=== PATIENT | female | born 1930 | race Caucasian/White ===

== ENCOUNTER 2016-07-06 20:34 | Inpatient (IN) | payer OTHER ==
[~2016-07-06] VITALS: Ht 165.1 cm; Wt 60.5 kg
[~2016-07-06 20:34] MED LIST: ACET-1256 PO; ACET325T96 PO; ASPI-435 PO; CALC500T72 PO; CALCTAB27 PO; CHOL1CAP57 PO; ENOX30IN4 SQ; MULT-190 PO; MULT-808 PO; OMEG10007 PO; OXYC-57 PO; POLY335019 PO
[2016-07-06 21:02] LABS: BASO % 0.5 %; BASO ABS # 0.06 K/uL (0-0.2); COMPLETE YES; HEMATOCRIT 44.4 % (37-47); IG% 0.8 %; LYMPH % 26.2 %; LYMPH ABS # 3.39 K/uL (1.2-3.4); MEAN CELL VOLUME 93.5 fL (80-100); MEAN CORPUSCULAR HEMOGLOBIN 30.1 pg (25-34); MEAN CORPUSCULAR HGB CONC 32.2 g/dl (32-36); MEAN PLATELET VOLUME 12.3 fL (7.4-10.4); MONO % 3.9 %; NEUT % 66.6 %; PLATELET COUNT 218 K/uL (130-400); RED BLOOD COUNT 4.75 M/uL (4.2-5.4); WHITE BLOOD COUNT 12.92 K/uL (4.8-10.8)
[2016-07-06 21:08] LABS: BUN/CREATININE RATIO 33.3 (10-20); CREATININE 0.82 mg/dl (0.60-1.20); MAGNESIUM 2.4 mg/dl (1.8-2.4); POTASSIUM 4.2 mmol/L (3.5-5.1)
[2016-07-06 21:11] LABS: ISTAT CREATININE 0.7 mg/dl (0.6-1.3); ISTAT HEMOGLOBIN 14.6 g/dl (12.0-16.0); ISTAT IONIZED CALCIUM 1.16 mmol/l (1.12-1.32)
[2016-07-06 21:14] LABS: PARTIAL THROMBOPLASTIN RATIO 0.9; PROTHROMBIN TIME (PATIENT) 10.6 SECONDS (9.0-12.0)
[2016-07-06 21:20] LABS: ISTAT CREATININE 0.7 mg/dl (0.6-1.3); ISTAT HEMOGLOBIN 15.6 g/dl (12.0-16.0); ISTAT IONIZED CALCIUM 1.26 mmol/l (1.12-1.32)
[2016-07-06] MEDS ORDERED: ACET-1311 PO (21:22)
[2016-07-06] MEDS ORDERED: DOCU-94 PO (21:22)
[2016-07-06] MEDS ORDERED: CALCTAB27 PO (21:24)
[2016-07-06 22:04] LABS: CALCIUM 9.8 mg/dl (8.5-10.1)
[2016-07-06] MEDS ORDERED: NITROGLYCERIN 0.4 MG SL PER TAB CHARGE SL PRN (22:30)
[2016-07-06] MEDS ORDERED: PROMETHAZINE HCL INJ 12.5 MG in SODIUM CHLORIDE 0.9% 50ML 50 ML IV PRN (22:30)
[2016-07-06] MEDS ORDERED: ACETAMINOPHEN 325 MG TAB PO PRN (22:30)
--- NOTE | 2016-07-06 22:56 | DIAGNOSTIC IMAGING REPORT ---
CHEST ONE VIEW PORTABLE HISTORY: weakness COMPARISON: Chest 04/20/2014. FINDINGS: The lungs are hyperexpanded with apical predominant emphysematous changes. No focal lung consolidations to suggest pneumonia. Calcified granulomas within the left lower lobe. Calcified left hilar lymph nodes. The heart is normal in size. Severe degenerative changes within the shoulders. Left humeral subluxation has improved. IMPRESSION: Chronic changes as described above. No acute process within the chest. Electronically signed by: Freedom Turcios M.D. 07/06/2016 10:55 PM Dictated Date/Time: 07/06/2016 10:53 PM
[2016-07-07] VITALS (14 sets, daily range): BP systolic 98–141; BP diastolic 47–77; PULSE 34–89; TEMP 36.2–36.8; O2SAT 95–100; Ht 165.1 cm; Wt 60.5 kg
--- NOTE | 2016-07-07 00:07 | HISTORY & PHYSICAL EXAMINATION ---
DATE OF ADMISSION: 07/06/2016 PRIMARY CARE DOCTOR: Dr. Arthur. The patient is a [facility] resident. CHIEF COMPLAINT: Blackout, crushing feeling. HISTORY OF PRESENT ILLNESS: History obtained from patient, patient's family, and records. Limited history from the patient was obtained secondary to dementia and hearing impairment. Medical history is significant for dementia, hypertension, currently not on meds, history of MGUS, slow transit constipation as per records. Recent confinement last April 2014 for tibial fracture 2 to fall sp surgery. Yesterday, the patient was with family when she was noted to have a transient unresponsiveness. Patient "blacked out" for a few moments. Px's eyes rolled upwards and some incontinence noted. No extremity jerks or tongue biting witnessed. Her heart rate was found to be 40. Patient later told them that she had a crushing feeling. No cp, no sob. As per family's account, patient earlier had 4 episodes in the morning. PX denies headaches. At the Emergency Room, the patient noted to have complete heart block. MEDICAL HISTORY: As above. 2D echo from April 2014 showed LVH, certain degree of pericardial fluid anterior to the right ventricle wall without gross pericardial effusion. mild aortic sclerosis As per patient's daughter, home ACEI for HTN stopped in 2012 secondary to improved blood pressure with loss of weight. SURGERIES: She has had orthopedic procedures. HOME MEDICATIONS: Aspirin, Lovenox, multivitamins, Percocet, Ocuvite, MiraLax. ALLERGIES: TO ADHESIVES, TETRACYCLINE, PENICILLIN. FAMILY HISTORY: Heart disease. PERSONAL AND SOCIAL HISTORY: Nonsmoker, no ETOh intake, was a [employer] . currently prison resident. REVIEW OF SYSTEMS: Could not be reliably obtained. PHYSICAL EXAMINATION: VITAL SIGNS: Blood pressure was noted to be 160/72, later 140/80, pulse rate 47, RR 18, temperature 36.8, sats 92 on room air. GENERAL: Noted to be slightly anxious, no respiratory distress, demented. hard of hearing SKIN: Normal color. HEENT: Breaks palpebral conjunctivae. Dry mucosa. NECK: No JVD. Supple. CHEST: Clear to auscultation. HEART: Bradycardic. ABDOMEN: Soft. NT EXTREMITIES: No edema. no tenderness NEUROLOGIC: Dementia. hard of hearing LABS: Hemoglobin of 14.3, hematocrit 44, white cell count 12.9, platelets 218. Sodium 140, potassium 4.2, chloride 103, CO2 30, BUN 37, creatinine 0.8, glucose 124, troponin was noted to be 0. TSH 1.78. IMAGING: Chest x-ray: No infiltrate. EKG as per my interpretation : rate= 45, 3AVB, PVCs, Q-waves in septal leads. ASSESSMENT: 1. Recurrent syncope 2 to symptomatic bradycardia/3AVB. ro seizures (witnessed episode of the patient eye rolling, decreased responsiveness, and urinary incontinence) 2. Hypertension, slightly elevated currently 2 to anxiety off ACEI since 2012 due to low BP as per outpx records 3. Dementia. 4. MGUS as per records PLAN: PCU. Family amenable to external pacer placement for now, may consider PPM 2D echo, Cardio consult RE symptomatic bradycardia. EEG to rule out seizures. DVT prophylaxis. Lovenox SQ DNR as per the patient's daughter/POA, Miss Mimi Farooq. She requests updates from providers at [phone]. DARELL
[2016-07-07] MEDS: SODIUM CHLORIDE 0.9% 1000ML 1,000 ML IV SCH ×2 (00:39→16:10)
--- NOTE | 2016-07-07 02:04 | EMERGENCY ROOM VISIT NOTE ---
History Report prepared by Myriam: Yvtete Joseph Under the Supervision of: Dr. Carlos Moran M.D. 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 The patient is a resident at [facility]. Per daughter, the patient's eyes rolled back into her head and she tremored for about 15 seconds and was unresponsive. EMS was called. Per EMS, the patient was in heart block with a 6 second pause en route. They state that the patient has passed out 4 times in the past 2 days. The patient has been vomiting tonight. She denies chest pain or shortness of breath. She just states she feels generally unwell. The history is limited due to the patient being a poor historian. Source of History: patient, family, EMS History Limited By: other (poor historian) Onset: TOOL AND DIE MACHINIST Position: other (global) Quality: other (syncope) Timing: other (episode) Associated Symptoms: + LOC, + vomiting Review of Systems ROS is limited due to the patient being a poor historian. Past Medical & Surgical Medical Problems: (1) Hypertension (2) Symptomatic bradycardia Family History Patient reports no known family medical history. Social History Smoking Status: Never Smoker Alcohol Use: none Drug Use: none Housing Status: halfway Current/Historical Medications Scheduled Acetaminophen (Tylenol), 325 MG PO TID Aspirin (Aspirin 81), 81 MG PO QAM Cholecalciferol (Vitamin D3), 1,000 UNIT PO QAM Docusate Sodium (Colace), 100 MG PO QAM Multiple Vitamin (Daily Vitamin), 1 TAB PO DAILY Oyster Shell (Oysco 500), 500 MG PO BID Polyethylene Glycol 3350 (Miralax), 17 GM PO QAM Allergies Coded Allergies: Penicillins (Verified Allergy, Mild, SWELLING, 09/22/14) Adhesives (Verified Allergy, Unknown, 09/22/14) Tetracycline (Verified Allergy, Unknown, RASH, 09/22/14) Physical Exam Vital Signs Date Time Temp Pulse Resp B/P (MAP) Pulse Ox O2 Delivery O2 Flow Rate FiO2 07/06/16 21:26 67 16 174/59 98 Room Air 07/06/16 21:08 45 16 141/56 97 Room Air 07/06/16 21:08 97 Room Air 07/06/16 20:44 36.8 37 18 173/72 92 Room Air 07/06/16 20:43 36 Physical Exam Constitutional: Vital signs reviewed. Eyes: Pupils are equal round reactive to light. Conjunctiva are noninjected. ENT: Pharynx is clear without erythema or exudate. Mucous membranes are moist. Neck supple without meningeal signs. Respiratory: Clear to auscultation bilaterally. Breath sounds are equal bilaterally. Cardiovascular: Bradycardic with a HR of 42. Regular rhythm. GI: Soft, nondistended and nontender. Bowel sounds are present. Musculoskeletal: No peripheral edema. No lower extremity tenderness. Integumentary: No cyanosis. Neurological: The patient is awake and alert. Cranial nerves II-XII are intact. Motor is 5 out of 5 all extremities. Sensation is intact to light touch all extremities. Normal speech. No pronator drift. No limb ataxia. Psychiatric: Normal affect. Medical Decision & Procedures ER Provider Diagnostic Interpretation: A repeat ECG reveals sinus bradycardia at 43, 1st degree AV block, Q-waves septally, no ectopy. Radiology results as stated below per my review and the radiologist's interpretation: CHEST ONE VIEW PORTABLE HISTORY: weakness COMPARISON: Chest 04/20/2014. FINDINGS: The lungs are hyperexpanded with apical predominant emphysematous changes. No focal lung consolidations to suggest pneumonia. Calcified granulomas within the left lower lobe. Calcified left hilar lymph nodes. The heart is normal in size. Severe degenerative changes within the shoulders. Left humeral subluxation has improved. IMPRESSION: Chronic changes as described above. No acute process within the chest. Electronically signed by: Freedom Turcios M.D. 07/06/2016 10:55 PM Dictated Date/Time: 07/06/2016 10:53 PM Laboratory Results 07/06/16 20:29 Red Blood Count 4.75, Mean Corpuscular Volume 93.5, Mean Corpuscular Hemoglobin 30.1, Mean Corpuscular Hemoglobin Concent 32.2, Mean Platelet Volume 12.3, Neutrophils (%) (Auto) 66.6, Lymphocytes (%) (Auto) 26.2, Monocytes (%) (Auto) 3.9, Eosinophils (%) (Auto) 2.0, Basophils (%) (Auto) 0.5, Neutrophils # (Auto) 8.61, Lymphocytes # (Auto) 3.39, Monocytes # (Auto) 0.50, Eosinophils # (Auto) 0.26, Basophils # (Auto) 0.06 07/06/16 20:29 Test 07/06/16 20:29 07/06/16 21:00 07/06/16 21:07 White Blood Count 12.92 K/uL (4.8-10.8) Red Blood Count 4.75 M/uL (4.2-5.4) Hemoglobin 14.3 g/dL (12.0-16.0) Hematocrit 44.4 % (37-47) Mean Corpuscular Volume 93.5 fL (80-100) Mean Corpuscular Hemoglobin 30.1 pg (25-34) Mean Corpuscular Hemoglobin Concent 32.2 g/dl (32-36) Platelet Count 218 K/uL (130-400) Mean Platelet Volume 12.3 fL (7.4-10.4) Neutrophils (%) (Auto) 66.6 % Lymphocytes (%) (Auto) 26.2 % Monocytes (%) (Auto) 3.9 % Eosinophils (%) (Auto) 2.0 % Basophils (%) (Auto) 0.5 % Neutrophils # (Auto) 8.61 K/uL (1.4-6.5) Lymphocytes # (Auto) 3.39 K/uL (1.2-3.4) Monocytes # (Auto) 0.50 K/uL (0.11-0.59) Eosinophils # (Auto) 0.26 K/uL (0-0.5) Basophils # (Auto) 0.06 K/uL (0-0.2) RDW Standard Deviation 48.1 fL (36.4-46.3) RDW Coefficient of Variation 14.0 % (11.5-14.5) Immature Granulocyte % (Auto) 0.8 % Immature Granulocyte # (Auto) 0.10 K/uL (0.00-0.02) Prothrombin Time 10.6 SECONDS (9.0-12.0) Prothromb Time International Ratio 1.0 (0.9-1.1) Activated Partial Thromboplast Time 22.6 SECONDS (21.0-31.0) Partial Thromboplastin Ratio 0.9 Est Creatinine Clear Calc Drug Dose 43.5 ml/min Estimated GFR () 75.6 Estimated GFR (Non- 65.3 BUN/Creatinine Ratio 33.3 (10-20) Calcium Level 9.8 mg/dl (8.5-10.1) Magnesium Level 2.4 mg/dl (1.8-2.4) Thyroid Stimulating Hormone (TSH) 1.780 uIu/ml (0.300-4.500) Bedside Troponin I 0.000 ng/ml (0-0.045) Bedside Hemoglobin 15.6 g/dl (12.0-16.0) Bedside Hematocrit 46 % (37-47) Bedside Sodium 139 mEq/L (135-144) Bedside Potassium 4.2 mEq/L (3.3-5.0) Bedside Chloride 99 mEq/L (101-112) Bedside Total CO2 28 mEq/l (24-31) Anion Gap 18.0 mmol/L (16-25) Bedside Blood Urea Nitrogen 29 mg/dl (7-18) Bedside Creatinine 0.7 mg/dl (0.6-1.3) Bedside Glucose (other) 125 mg/dl (70-99) Bedside Ionized Calcium (Trino) 1.26 mmol/l (1.12-1.32) Laboratory results as reviewed by me. ECG Indication: syncope Rate (beats per minute): 42 Rhythm: junctional (bradycardia) Findings: Q waves (Septal), other (3rd degree AV block) ED Course 2038: The patient was evaluated in room B12B. A complete history and physical exam was performed. 2051: I reassessed the patient at this time and spoke with her daughter. She states that the patient is a DNR and when I talked to the patient she confirmed that she did not want CPR or any heroic actions. 2100: The patient is now in sinus rhythm with rate of 46, no AV dissociation. I- STAT showed a potassium of 6.1, will recheck to verify. 2116: I spoke with Dr. Davidson. We discussed the patients results and treatment plan. [facility] 2119: I reassessed the patient at this time. I discussed the results and treatment plan with the patient and her daughter. I answered all pertaining questions that they had. They expressed understanding and verbalized agreement. Medical Decision This is an 86-year-old female who presents with a syncopal episode. Differential diagnosis includes complete heart block, dysrhythmia, metabolic derangement, seizure, dehydration, acute coronary syndrome, infection. I did perform a limited focused review of portions of the patient's old chart on the electronic medical record. The patient has had no recent pertinent visits to this hospital. Medication Reconciliation: I attest that I have personally reviewed the patient' s current medication list. Blood Pressure Screening: Patient was found to have an elevated blood pressure and was referred to their primary doctor for recheck and further treatment. I was called in emergently to the room by the nurse. I did evaluate the patient as noted above. A second IV access was established. The patient was placed on a continuous classroom monitor. She has a third-degree heart block and bradycardia but she is hypertensive. I did order and personally review the patient's 12-lead EKG and chest x-ray as described above. Twelve-lead EKG demonstrates a third-degree heart block with bradycardia. No acute ischemia. She does have Q waves septally. I did order and review the patient's blood work as noted in the electronic medical record. Initially her i-STAT showed a hyperkalemia but we did repeat this and the potassium was normal. While in the emergency department the patient converted to sinus rhythm. A repeat twelve- lead EKG was obtained which showed sinus bradycardia with a first-degree heart block. I did obtain history from the patient as well as her daughter is at the bedside. Initially EMS had told me that she may have had a seizure but when I discuss what happened with the daughter it sounds like the patient just passed out briefly and had some tremors. Her syncope is likely secondary to her AV dissociation and pause. They both state that she wants to be DO NOT RESUSCITATE but is amenable to admission and cardiology evaluation for possible pacemaker as needed. The I did discuss the case with the hospitalist and business case analyst. Consults Time Called: 2114 Consulting Physician: Dr. Davidson Returned Call: [address] Davidson. We discussed the patients results and treatment plan. The patient will be evaluated by the [facility] for further management. Impression Primary Impression: Syncope Additional Impression: Third degree AV block Scribe Attestation The scribe's documentation has been prepared under my direct and personally reviewed by me in its entirety. I confirm that the note above accurately reflects all work, treatment, procedures, and medical decision making performed by me. Departure Information Dispostion Being Evaluated By Hospitalist Referrals Eula Arthur D.O. (PCP) Patient Instructions My [facility] Health Problem Qualifiers Primary Impression: Syncope Syncope type: unspecified Qualified Codes: R55 - Syncope and collapse
[2016-07-07 06:02] LABS: BASO % 0.2 %; BASO ABS # 0.03 K/uL (0-0.2); COMPLETE YES; EOS % 0.4 %; HEMATOCRIT 40.8 % (37-47); IG% 0.2 %; LYMPH % 11.3 %; LYMPH ABS # 1.44 K/uL (1.2-3.4); MEAN CELL VOLUME 92.5 fL (80-100); MEAN CORPUSCULAR HEMOGLOBIN 29.5 pg (25-34); MEAN CORPUSCULAR HGB CONC 31.9 g/dl (32-36); MEAN PLATELET VOLUME 12.3 fL (7.4-10.4); MONO % 3.7 %; NEUT % 84.2 %; PLATELET COUNT 171 K/uL (130-400); RED BLOOD COUNT 4.41 M/uL (4.2-5.4); WHITE BLOOD COUNT 12.77 K/uL (4.8-10.8)
--- NOTE | 2016-07-07 06:32 | DIAGNOSTIC IMAGING REPORT ---
CT HEAD WITHOUT CONTRAST (CT) CLINICAL HISTORY: Acute change in mental status. Possible seizure. COMPARISON STUDY: 09/22/2014 TECHNIQUE: Axial CT of the brain is performed from the vertex to the skull base. IV contrast was not administered for this examination. CT DOSE: 537.48 mGy.cm FINDINGS: No intra or extra-axial mass lesions are visualized. There is no CT evidence of acute cortical infarction. There is no evidence of midline shift. There is no acute hemorrhage. No calvarial fractures are visualized. There are patchy white matter hypodensities likely on a small vessel basis. There is no evidence of pathologic ventricular dilatation. There is no evidence of acute sinusitis IMPRESSION: No acute intracranial findings Electronically signed by: Chino Londono M.D. 07/07/2016 6:31 AM Dictated Date/Time: 07/07/2016 6:30 AM
[2016-07-07] MEDS: DOCUSATE SODIUM 100 MG CAP PO SCH (08:30)
[2016-07-07] MEDS: POLYETHYLENE (MIRALAX) 17 GM PACK PO SCH (08:31)
[2016-07-07] MEDS: MULTIVITAMIN TAB PO SCH (08:31)
[2016-07-07] MEDS: ENOXAPARIN 40 MG/0.4 ML SYR SC SCH (08:39)
[2016-07-07] MEDS: ASPIRIN 81 MG ECTAB PO SCH (08:39)
[2016-07-07] MEDS ORDERED: CLINDAMYCIN IV 600 MG in DEXTROSE 5% ADD-VANTAGE 50ML 50 ML IV STA (08:53)
[2016-07-07] MEDS ORDERED: NURSING VERBAL MED ORDER ONE (09:00)
[2016-07-07] MEDS ORDERED: BACITRACIN 50000 UNIT VIAL ONE (09:23)
[2016-07-07] MEDS ORDERED: LIDOCAINE HCL 1% 20 ML VIAL ONE (09:23)
[2016-07-07] MEDS ORDERED: BUPIVACAINE 0.5 % 5 MG/1 ML MPF 30ML VIAL ONE (09:23)
--- NOTE | 2016-07-07 09:23 | CARDIOLOGY CONSULTATION ---
DATE OF CONSULTATION: 07/07/2016 CONSULTATION FOR: Ruddy cam. REASON FOR CONSULTATION: Syncope. HISTORY OF PRESENT ILLNESS: This is an 86-year-old female who is a resident of [facility]. She had a syncopal episode and was admitted to the hospital. On the telemetry, she has developed complete heart block with bradycardia. She currently is hemodynamically stable. However, she will need a permanent pacemaker. The patient is listed under the H&P as being demented; however, there may be some mild dementia, but I think most of it is that she is hard of hearing. The family is with her at the bedside. They would like her to have a permanent pacemaker for quality of life. Her daughter is here who is the power of regulatory attorney and is willing to sign the consent. She has no prior history of heart disease. She denies myocardial infarction, angina, congestive heart failure or other cardiac arrhythmias. In April of this year, she was admitted after a fall which could have been a syncopal event, where she fractured her tibia. During that admission, she had an echocardiogram that showed normal LV systolic function and no significant valvular pathology. There is an incidental finding of a small anterior pericardial effusion which is clinically insignificant. ALLERGIES: TO ADHESIVE TAPE, TETRACYCLINE, AND PENICILLIN. PAST MEDICAL HISTORY: The patient has a history of hypertension. She also has a history of monoclonal antibody of unspecified significance. She has no prior history of diabetes, strokes or significant kidney disease. SOCIAL HISTORY: She is a resident of [facility]. She is a nonsmoker. FAMILY MEDICAL HISTORY: Noncontributory. REVIEW OF SYSTEMS: As per the history of chief complaint. PHYSICAL EXAMINATION: GENERAL: She is alert, but hard of hearing. VITAL SIGNS: Blood pressure is 120/60. Pulse is regular at 40 beats per minute. She is in complete heart block on the telemetry. HEENT: She is normocephalic. Pupils are equal and reactive to light. Mucous membranes are moist. NECK: The neck veins are flat. Carotids have good upstrokes bilaterally without bruits. Thyroid is nonpalpable. RESPIRATORY: Breath sounds are equal bilaterally and clear to auscultation. CARDIOVASCULAR: Heart has an irregular rhythm. There are no cardiac rubs or murmurs. GASTROINTESTINAL: Abdomen is soft, nontender without organomegaly. EXTREMITIES: Free of edema, digit clubbing, or cyanosis. NEUROLOGIC: Grossly intact. SKIN: Warm to touch. LYMPH NODES: Negative to palpation. IMPRESSION: 1. High grade complete heart block. 2. Syncope related to #1. 3. Hard of hearing. RECOMMENDATIONS: As outlined above, the family is at her bedside including her power of regulatory attorney. They would like her to have a permanent pacemaker, which I think is reasonable for relief of her syncopal episodes and quality of life. I will consult the EP physicians to place a permanent pacemaker. Currently, the patient is hemodynamically stable and I think it could be done urgently, but at a reasonable time.
[2016-07-07] MEDS ORDERED: FENTANYL CITRATE INJ 50 MCG/1 ML 2 ML VIAL ONE (09:59)
[2016-07-07] MEDS ORDERED: MIDAZOLAM HCL 5 MG/ML 1 ML VIAL ONE (09:59)
[2016-07-07] MEDS ORDERED: ACETAMINOPHEN 325 MG TAB PO PRN (11:00)
[2016-07-07] MEDS: OXYCODONE/ACETAMINOPHEN 5-325 TAB PO PRN (11:54)
--- NOTE | 2016-07-07 14:56 | ECHOCARDIOGRAM REPORT ---
*NOTICE TO RECEIVING [employer] This information is strictly Confidential and protected under [place] law. [place] law prohibits you from making any further disclosure of this information unless further disclosure is expressly permitted by the written consent of the person to whom it pertains or is authorized by law. A general authorization for the release of medical or other information is not sufficient for this purpose. Hospital accepts no responsibility if the information is made available to any other person, INCLUDING THE PATIENT. Interpretation Summary * Name: CARLITA LE Study Date: 07/07/2016 06:30 AM BP: 125/56 mmHg * Patient Location: C.2T\S\E216\S\1 HR: 36 * : 1930 (M/d/yyyy) Gender: Female Height: 62 in * Age: 86 yrs Ethnicity: CA Weight: 137 lb * Ordering Physician: Steven Davidson * Referring Physician: Self, Referred * Performed By: Radha Ortiz RCS * * Reason For Study: BRADYCARDIA / SYNCOPE * BSA: 1.6 m2 * -- Conclusions -- * Aortic valve sclerosis moderate, without significant aortic valvular stenosis. * The left ventricle is normal in size. * Left ventricular systolic function is normal. * Ejection Fraction = 55-60%. * The right ventricular systolic function is normal. * The left atrium is moderately dilated. * Right atrial size is normal. * There is severe mitral annular calcification. * There is mild mitral stenosis. Procedure Details * A complete two-dimensional transthoracic echocardiogram was performed (2D, M-mode, Doppler and color flow Doppler). Left Ventricle * The left ventricle is normal in size. * There is normal left ventricular wall thickness. * Ejection Fraction = 55-60%. * Left ventricular systolic function is normal. * The left ventricular wall motion is normal. Right Ventricle * The right ventricle is normal size. * The right ventricular systolic function is normal. Atria * The left atrium is moderately dilated. * Right atrial size is normal. * No ASD detected; PFO is not assessed. Mitral Valve * There is severe mitral annular calcification. * The mitral valve is not well visualized. * There is mild mitral stenosis. * Significant mitral regurgitation is absent. Tricuspid Valve * The tricuspid valve is not well visualized. * Significant tricuspid regurgitation is absent. Aortic Valve * Aortic valve sclerosis moderate, without significant aortic valvular stenosis. * There is no significant aortic regurgitation. Pulmonic Valve * The pulmonic valve is not well visualized. Great Vessels * The aortic root and proximal ascending aorta are normal sized. Pericardium/Pleural * There is no pericardial effusion. * There is no pleural effusion. MMode 2D Measurements and Calculations IVSd 1.1 cm IVSs 1.4 cm LVIDd 4.4 cm LVIDs 3.3 cm LVPWd 0.97 cm LVPWs 0.95 cm IVS/LVPW 1.1 FS 25.8 % EDV(Teich) 87.1 ml ESV(Teich) 42.7 ml EF(Teich) 51.0 % EDV(cubed) 84.5 ml ESV(cubed) 34.5 ml EF(cubed) 59.2 % % IVS thick 29.9 % % LVPW thick -2.61 % LV mass(C)d 153.5 grams LV mass(C)dI 94.3 grams/m\S\2 LV mass(C)s 119.4 grams LV mass(C)sI 73.3 grams/m\S\2 SV(Teich) 44.4 ml SI(Teich) 27.3 ml/m\S\2 SV(cubed) 50.0 ml SI(cubed) 30.7 ml/m\S\2 Ao root diam 2.7 cm Ao root area 5.8 cm\S\2 LA dimension 2.6 cm LA/Ao 0.98 LVOT diam 1.7 cm LVOT area 2.2 cm\S\2 LVAd ap4 21.5 cm\S\2 LVLd ap4 6.1 cm EDV(MOD-sp4) 61.1 ml EDV(sp4-el) 64.7 ml LVAs ap4 12.3 cm\S\2 LVLs ap4 4.9 cm ESV(MOD-sp4) 25.5 ml ESV(sp4-el) 26.4 ml EF(MOD-sp4) 58.3 % EF(sp4-el) 59.2 % LVAd ap2 20.2 cm\S\2 LVLd ap2 6.2 cm EDV(MOD-sp2) 52.3 ml EDV(sp2-el) 55.5 ml LVAs ap2 13.1 cm\S\2 LVLs ap2 5.4 cm ESV(MOD-sp2) 24.7 ml ESV(sp2-el) 27.1 ml EF(MOD-sp2) 52.7 % EF(sp2-el) 51.1 % LVLd %diff 2.7 % EDV(MOD-bp) 57.8 ml LVLs %diff 9.3 % ESV(MOD-bp) 26.8 ml EF(MOD-bp) 53.6 % SV(MOD-sp4) 35.6 ml SI(MOD-sp4) 21.9 ml/m\S\2 SV(MOD-sp2) 27.6 ml SI(MOD-sp2) 16.9 ml/m\S\2 SV(MOD-bp) 31.0 ml SI(MOD-bp) 19.1 ml/m\S\2 SV(sp4-el) 38.3 ml SI(sp4-el) 23.5 ml/m\S\2 SV(sp2-el) 28.4 ml SI(sp2-el) 17.4 ml/m\S\2 Doppler Measurements and Calculations MV E max ciara 119.1 cm/sec MV A max ciara 210.3 cm/sec MV E/A 0.57 MV P1/2t max ciara 128.3 cm/sec MV P1/2t 257.6 msec MVA(P1/2t) 0.85 cm\S\2 MV dec slope 145.9 cm/sec\S\2 MV dec time 1.0 sec Ao V2 max 134.8 cm/sec Ao max PG 7.3 mmHg Ao max PG (full) 2.8 mmHg JULIO C(V,A) 1.7 cm\S\2 JULIO C(V,D) 1.7 cm\S\2 LV V1 max PG 4.5 mmHg LV V1 max 105.8 cm/sec TR max ciara 235.8 cm/sec
--- NOTE | 2016-07-07 15:06 | ELECTROENCEPHALOGRAPH REPORT ---
CLINICAL DIAGNOSIS: Syncope versus seizure. EEG DIAGNOSIS: Essentially normal during wakefulness. DESCRIPTION OF TRACING: This EEG was done as a bedside recording with a simultaneous video analysis of patient movement and behavior. No activation procedures were utilized. Drowsiness and light sleep were not recorded. Overall the recording was of excellent quality with few or no muscle or movement artifacts. During wakefulness, there is evidence for normal appearing background rhythm in the alpha range of up to 10 Hz of maximum frequency and 30 microvolts of maximum amplitude. This is maximum posterior head regions and bilaterally symmetrical. Polymorphic mid frequency theta activity of modest voltage is seen over all head regions without clear focal or regional predominance. Anterior head region maximum bilaterally symmetrical low voltage fast activity in the beta range is present. At no time during the waking tracing is there evidence for potentially epileptogenic activity in the form of polyspike or spike wave bursts, focal sharp waves or focal spikes. INTERPRETATION: This EEG is essentially normal during wakefulness without evidence for focal or generalized encephalopathy and without evidence for potentially epileptogenic activity.
[2016-07-07 15:14] LABS: URINE APPEARANCE CLEAR (CLEAR); URINE BILIRUBIN NEG (NEG); URINE COLOR DK YELLOW; URINE NITRITE NEG (NEG); URINE SPECIFIC GRAVITY 1.023 (1.000-1.030); UROBILINOGEN NEG (NEG); ZZUR CULT IF INDIC CLEAN CATCH YES
[2016-07-07 15:28] LABS: MANUAL MICROSCOPIC REQUIRED? NO; REVIEW REQ? YES
[2016-07-07] MEDS: CLINDAMYCIN IV 600 MG in DEXTROSE 5% ADD-VANTAGE 50ML 50 ML IV SCH (16:48)
[2016-07-07] MEDS: HYDROmorphone INJ 1 MG/ML SYR IV PRN (16:49)
--- NOTE | 2016-07-07 16:49 | OPERATIVE REPORT ---
DATE OF OPERATION: 07/07/2016 PROCEDURE PERFORMED: Implantation of dual chamber permanent pacemaker. STAFF MACHINE BINDER STRIPPER: Dr. Alexandre Villarreal. INDICATIONS: Mrs. Pat Matthews is an 86-year-old woman who presented to [facility] after periods of unresponsiveness. The patient was noted on EKG to have complete heart block and periods of ventricular asystole associated with this arrhythmia. This correlated with her symptoms. Based on the nature of her symptoms and conduction disease, she was advised to consider implantation of a pacemaker for symptomatic nonreversible AV node dysfunction. A dual chamber device was selected as the patient is currently in sinus rhythm and wished to maintain AV synchrony. PROCEDURE DETAIL: The patient was informed of risks, benefits, alternatives to an intended procedure. Her power of estate attorney was also informed and sign the witness consent form. DESCRIPTION OF PROCEDURE: The patient was brought to the electrophysiology suite in a fasting state. Preoperative antibiotic had been administered. The patient was monitored electrocardiographically throughout today's procedure. The left lateral chest area was prepped and draped in usual sterile fashion. This area was anesthetized using subcutaneous administration of Xylocaine and Marcaine solution. An incision was made, dissection carried down the prepectoralis fascia using sharp dissection. Electrocautery was also employed for dissection as well as for hemostasis. A limited left axillary venogram was then performed in order to identify a suitable target vessel. Once identified, the left axillary vein was accessed twice using modified Seldinger technique. Sheaths were placed over guidewire at this site and used for the passage of the pacing leads to their respective chambers under fluoroscopic guidance, this included right atrial and right ventricular leads. Adequate sensing and threshold parameters were obtained prior active fixation of these leads to the endocardial surface. The proximal portion of the leads was then sutured to the prepectoral fascia using nonabsorbable suture. Device pocket was irrigated with an antibiotic solution. Leads were then attached to the device, device and leads were then placed in the pocket and the pocket was closed in 3 layers of absorbable suture. Steri-Strips and sterile dressing were applied. The device was tested noninvasively prior to concluding the procedure. The patient tolerated the procedure well. There were no immediate complications. EQUIPMENT USED: New pulse generator, manager of medical [employer], model #A2DR01, serial #[id number]. Right atrial lead, manager of medical [employer], model #5076, serial #[id number]. Right ventricular lead, manager of medical [employer], model #5076, serial #[id number]. MEASURED DATA: 1. Right atrial lead, P waves measured 1.8 millivolts, pacing threshold was 2.75 volts at 0.4 milliseconds with a pacing impedance of 418 ohms. 2. Right ventricular lead, R-waves measured 6.8 millivolts, pacing threshold was 0.75 volts at 0.4 milliseconds and the pacing impedance of 532 ohms. IMPRESSION: 1. Successful implantation of dual chamber permanent pacemaker. 2. Slightly elevated atrial-pacing threshold at the conclusion of the case. PLAN: The patient will be monitored throughout overnight and additional dose of antibiotics will be administered. Chest x-ray and interrogation of device will be performed this morning. Should all parameters be adequate and the patient be feeling well, she will be considered for discharge at that time. I attest to the content of the Intraoperative Record and any orders documented therein. Any exception s are noted below.
[2016-07-07] MEDS ORDERED: DiphenhydrAMINE HCL 12.5MG/5 ML UDC PO ONE (18:15)
[2016-07-07] MEDS ORDERED: LORATADINE 10 MG TAB PO STA (23:30)
[2016-07-08] MEDS: CLINDAMYCIN IV 600 MG in DEXTROSE 5% ADD-VANTAGE 50ML 50 ML IV SCH (02:13)
[2016-07-08 03:35] VITALS: BP 122/73; PULSE 84; TEMP 37; O2SAT 98
--- NOTE | 2016-07-08 07:36 | DIAGNOSTIC IMAGING REPORT ---
CHEST 2 VIEWS ROUTINE HISTORY: EXACT TIME ORDERED Evaluate for pneumothorax and lead placement COMPARISON: Chest 07/06/2016. FINDINGS: Left-sided dual-chamber pacemaker. The leads appear intact. Calcified left hilar lymph nodes and a calcified left lower lobe granuloma remain unchanged. The heart is normal in size. The right lung is clear. Degenerative changes within the shoulders are again noted. IMPRESSION: Left-sided dual-chamber pacemaker. No pneumothorax. Electronically signed by: Freedom Turcios M.D. 07/08/2016 7:35 AM Dictated Date/Time: 07/08/2016 7:33 AM
[2016-07-08] MEDS: OXYCODONE/ACETAMINOPHEN 5-325 TAB PO PRN ×2 (07:55→16:45)
[2016-07-08] MEDS: ENOXAPARIN 40 MG/0.4 ML SYR SC SCH (07:56)
[2016-07-08] MEDS: MULTIVITAMIN TAB PO SCH (07:56)
[2016-07-08] MEDS: SODIUM CHLORIDE 0.9% 1000ML 1,000 ML IV SCH (07:57)
[2016-07-08] MEDS: ASPIRIN 81 MG ECTAB PO SCH (07:57)
[2016-07-08] MEDS: POLYETHYLENE (MIRALAX) 17 GM PACK PO SCH (07:57)
[2016-07-08] MEDS: DOCUSATE SODIUM 100 MG CAP PO SCH (07:57)
[2016-07-08 08:00] VITALS: BP 124/76; PULSE 82; TEMP 36.8; O2SAT 98
--- NOTE | 2016-07-08 08:17 | Cardiology Follow-Up ---
Subjective Date of Service: Jul 08, 2016. Pt evaluation today including: conversation w/ patient, physical exam History of Present Illness S/P dual chamber Medtronic pacemaker implant yesterday for symptomatic complete heart block Social History Smoking Status: Never Smoker History of Alcohol Use: No Objective Vital Signs Past 12 Hours Date Time Temp Pulse Resp B/P (MAP) Pulse Ox O2 Delivery O2 Flow Rate FiO2 07/08/16 04:00 Room Air 07/08/16 03:35 37.0 84 18 122/73 (89) 98 Room Air 07/08/16 00:00 Room Air 07/07/16 23:52 36.4 82 20 120/77 (91) 98 Room Air Last Recorded Weight-Kilograms: 56.700 Physical Exam Implant site is erythematous as is the rest of her skin (generalized rash). No drainage. No hematoma. Interrogation reveals some farfield oversensing on the A-lead which was remedied with reduced atrial sensitivity. CXR demonstrated good lead position without PTX Data Laboratory Results: Last 24 Hours Test 07/08/16 07:08 Imaging: EKG: Telemetry reviewed: Assessment and Plan Successful implant of dual chamber pacemaker without complication. Generalized rash possibly secondary to clindamycin Recommend: Keep wound dry and ster-strip intact until f;/u in 1 week (can be arranged with [facility] cardiology device clinic) No lifting left arm above shoulder or behind neck for 6 weeks Stop clindamycin
[2016-07-08 08:33] LABS: BUN/CREATININE RATIO 25.4 (10-20); CREATININE 0.79 mg/dl (0.60-1.20); MAGNESIUM 2.1 mg/dl (1.8-2.4); PHOSPHORUS 2.5 mg/dl (2.5-4.9); POTASSIUM 4.2 mmol/L (3.5-5.1)
[2016-07-08] MEDS ORDERED: DiphenhydrAMINE HCL 50 MG/ML VIAL IV PRN (10:00)
[2016-07-08] MEDS ORDERED: HYDROCORTISONE IV 100 MG in SYRINGE 0 ML IV ONE (11:30)
--- NOTE | 2016-07-08 11:48 | Cardiology Follow-Up ---
Subjective General Date of Service: Jul 08, 2016. Chief Complaint: follow up syncope Pt evaluation today including: conversation w/ patient, physical exam History of Present Illness The patient is a 86 year old female seen in cardiology follow up with initially consultation having been performed yesterday by Dr Browning. Patient without complaint. Has asymptomatic generalized rash. Telemetry reveals SR with V pacing. EP note from today noted and appreciated. Allergies Coded Allergies: Penicillins (Verified Allergy, Mild, SWELLING, 09/22/14) Adhesives (Verified Allergy, Unknown, 09/22/14) Tetracycline (Verified Allergy, Unknown, RASH, 09/22/14) Social History Smoking Status: Never Smoker Hx Tobacco Use In Past Year?: No Hx Alcohol Use - Type And Amou: No Hx Substance Use - Type And Am: No Problem List Medical Problems: (1) Syncope Status: Acute (2) Third degree AV block Status: Acute Physical Exam Vital Signs Last Vital Signs Documentation Date Time Temp Pulse Resp B/P (MAP) Pulse Ox O2 Delivery O2 Flow Rate FiO2 07/08/16 08:00 36.8 82 20 124/76 (92) 98 Room Air Physical Exam Constitutional: Level of Distress: chronically ill Lungs: Auscultation: no wheezing, no rales/crackles, no rhonchi Cardiovascular: Heart Auscultation: RRR Extremities: no edema Assessment and Plan Assessment and Plan Impression: 86 year old female 1. Syncope due to intermittent complete AV block for which patient had dual chamber PPM on 07/07. 2. Post procedure CXR OK with no PTX and stable lead position. 3. Pacer interrogation reviewed by EP and settings adjusted as noted in Dr Villarreal's note. Plan: I have requested follow up with [facility] pacemaker clinic and Dr Browning within 7-10 days. Stable for discharge from my standpoint , clindamycin stopped due to it being a potential cause of rash. Laboratory Results Last 24 Hours Test 07/08/16 07:08 Sodium Level 144 mmol/L Potassium Level 4.2 mmol/L Chloride Level 109 mmol/L Carbon Dioxide Level 25 mmol/L Anion Gap 10.0 mmol/L Blood Urea Nitrogen 20 mg/dl Creatinine 0.79 mg/dl Est Creatinine Clear Calc Drug Dose 46.6 ml/min Estimated GFR () 79.1 Estimated GFR (Non- 68.3 BUN/Creatinine Ratio 25.4 Random Glucose 86 mg/dl Calcium Level 9.0 mg/dl Phosphorus Level 2.5 mg/dl Magnesium Level 2.1 mg/dl
[2016-07-08 12:00] VITALS: BP 134/72; PULSE 88; TEMP 36.8; O2SAT 98
[2016-07-08] MEDS: HYDROmorphone INJ 1 MG/ML SYR IV PRN (12:25)
[2016-07-08 16:11] VITALS: BP 100/65; PULSE 93; TEMP 37.2; O2SAT 96
--- NOTE | 2016-07-08 16:23 | Progress Note ---
Internal Med Progress Note Date of Service: Jul 08, 2016. Provider Documentation: SUBJECTIVE: The patient was seen and examined Admitted with [facility] with syncopal episodes Has dementia Developed generalized maculopapular rash Has been on Clindamycin perioperatively for placement of PPM OBJECTIVE: Vital Signs-as noted below Exam: General-No distress at rest Has generalized maculopapular rash Eyes-normal ENT-normal Neck-supple Lungs-clear to auscultate bilaterally Heart-Regular Abdomen-Benign Extremities-Trace edema bilaterally Neuro-AA Has Dementia Lab data as noted below. ASSESSMENT & PLAN: Recurrent syncope 2 to CHB Symptomatic Bradyarrhythmia R/O seizures (witnessed episode of the patient eye rolling, decreased responsiveness, and urinary incontinence) EEG negative Appreciate Cardiology input S/P PPM placement-monitor shows pacing rhythm Generalized Maculopapular rash Likely due to Clindamycin Stopped Hydrocortisone and Benadryl given Will keep her tonight Hypertension, slightly elevated currently 2 to anxiety off ACEI since 2012 due to low BP as per outpx records Dementia. No Delirium 4MGUS as per records DVT prophylaxis. Lovenox SQ DNR as per the patient's daughter/POA, Miss Mimi Farooq. She requests updates from providers at [phone]. Likely discharge tomorrow Vital Signs: Date Time Temp Pulse Resp B/P (MAP) Pulse Ox O2 Delivery O2 Flow Rate FiO2 07/08/16 16:11 37.2 93 18 100/65 (77) 96 Room Air 07/08/16 12:00 Room Air 07/08/16 12:00 36.8 88 20 134/72 (92) 98 Room Air 07/08/16 08:00 98 Room Air 07/08/16 08:00 36.8 82 20 124/76 (92) 98 Room Air 07/08/16 04:00 Room Air 07/08/16 03:35 37.0 84 18 122/73 (89) 98 Room Air 07/08/16 00:00 Room Air 07/07/16 23:52 36.4 82 20 120/77 (91) 98 Room Air 07/07/16 20:08 36.7 77 20 98/63 (75) 100 Room Air 07/07/16 20:00 Room Air Lab Results: Results Past 24 Hours Test 07/08/16 07:08 Range/Units Sodium Level 144 136-145 mmol/L Potassium Level 4.2 3.5-5.1 mmol/L Chloride Level 109 98-107 mmol/L Carbon Dioxide Level 25 21-32 mmol/L Anion Gap 10.0 3-11 mmol/L Blood Urea Nitrogen 20 7-18 mg/dl Creatinine 0.79 0.60-1.20 mg/dl Est Creatinine Clear Calc Drug Dose 46.6 ml/min Estimated GFR () 79.1 Estimated GFR (Non- 68.3 BUN/Creatinine Ratio 25.4 10-20 Random Glucose 86 70-99 mg/dl Calcium Level 9.0 8.5-10.1 mg/dl Phosphorus Level 2.5 2.5-4.9 mg/dl Magnesium Level 2.1 1.8-2.4 mg/dl
[2016-07-08 20:16] VITALS: BP 105/69; PULSE 81; TEMP 36.9; O2SAT 97
[2016-07-09] VITALS (8 sets, daily range): BP systolic 97–123; BP diastolic 62–69; PULSE 72–101; TEMP 36.5–37.1; O2SAT 94–98
[2016-07-09] MEDS: SODIUM CHLORIDE 0.9% 1000ML 1,000 ML IV SCH ×2 (06:43→21:29)
[2016-07-09] MEDS: ASPIRIN 81 MG ECTAB PO SCH (07:49)
[2016-07-09] MEDS: DOCUSATE SODIUM 100 MG CAP PO SCH (07:49)
[2016-07-09] MEDS: MULTIVITAMIN TAB PO SCH (07:49)
[2016-07-09] MEDS: POLYETHYLENE (MIRALAX) 17 GM PACK PO SCH (07:50)
[2016-07-09] MEDS: ENOXAPARIN 40 MG/0.4 ML SYR SC SCH (07:50)
[2016-07-09 08:22] LABS: BUN/CREATININE RATIO 27.5 (10-20); CREATININE 0.69 mg/dl (0.60-1.20); MAGNESIUM 2.2 mg/dl (1.8-2.4)
[2016-07-09 08:41] LABS: CALCIUM 9.1 mg/dl (8.5-10.1)
[2016-07-09] MEDS: OXYCODONE/ACETAMINOPHEN 5-325 TAB PO PRN (11:56)
[2016-07-09] MEDS: POT PHOSPHATE MONOBASIC W/ SOD TAB PO SCH ×3 (11:56→21:30)
[2016-07-09] MEDS: TRIAMCINOLONE ACET 0.1% CR 15 GM TUBE EXT SCH ×2 (12:15→21:30)
--- NOTE | 2016-07-09 13:29 | Cardiology Progress Note ---
Cardiology Progress Note Date of Service Jul 09, 2016. Cardiology Progress Note Patient resting comfortably. Rash appears improved compared to yesterday. Telemetry reveals SR with ventricular pacing.
--- NOTE | 2016-07-09 17:11 | Progress Note ---
Internal Med Progress Note Date of Service: Jul 09, 2016. Provider Documentation: SUBJECTIVE: has rash all over the body denies chest pain or sob no nausea seems weak afebrile OBJECTIVE: Vital Signs-as noted below Exam: General-alert and awake. Not in distress. Weak and frail ENT-HArd of hearing Neck-no neck masses, supple Lungs-cta b/l no wheezing or crackles Heart-s1 and s2 heard regular rate and rhythm, no murmurs, pacemaker site no drainage Abdomen-soft bowel sounds present non tender no distension Extremities-no edema, no erythema Skin: erythematous rash involving face and extremities Neuro-alert and awake moves extremities Lab data as noted below. ASSESSMENT & PLAN: Recurrent syncope 2 to CHB Symptomatic Bradyarrhythmia EEG negative S/P PPM placement-monitor shows pacing rhythm stable Generalized Maculopapular rash Most Likely due to Clindamycin which was stopped Hydrocortisone and Benadryl given improved but still has significant rash prednisone given and triamcinolone cream will monitor Hypertension, off ACEI since 2012 due to low BP as per outpx records stable will monitor Dementia. No Delirium 4MGUS as per records DVT prophylaxis. Lovenox SQ DNR as per the patient's daughter/POA, Miss Mimi Farooq. She requests updates from providers at [phone]. Most Likely discharge tomorrow Vital Signs: Date Time Temp Pulse Resp B/P (MAP) Pulse Ox O2 Delivery O2 Flow Rate FiO2 07/09/16 15:00 37.1 77 16 113/67 (82) 94 Room Air 07/09/16 11:25 36.5 101 20 123/68 (86) 95 Room Air 07/09/16 08:00 97 Room Air 07/09/16 07:45 36.8 76 18 108/64 (79) 97 Room Air 07/09/16 04:00 Room Air 07/09/16 03:47 36.8 76 18 107/69 (82) 98 Room Air 07/09/16 00:08 36.8 76 18 97/62 (74) 98 Room Air 07/09/16 00:00 Room Air 07/08/16 20:16 36.9 81 18 105/69 (81) 97 Room Air 07/08/16 20:00 Room Air Lab Results: Results Past 24 Hours Test 07/09/16 07:30 Range/Units Sodium Level 144 136-145 mmol/L Potassium Level 4.0 3.5-5.1 mmol/L Chloride Level 110 98-107 mmol/L Carbon Dioxide Level 26 21-32 mmol/L Anion Gap 8.0 3-11 mmol/L Blood Urea Nitrogen 19 7-18 mg/dl Creatinine 0.69 0.60-1.20 mg/dl Est Creatinine Clear Calc Drug Dose 26.6 ml/min Estimated GFR () 92.0 Estimated GFR (Non- 79.4 BUN/Creatinine Ratio 27.5 10-20 Random Glucose 80 70-99 mg/dl Calcium Level 9.1 8.5-10.1 mg/dl Phosphorus Level 2.0 2.5-4.9 mg/dl Magnesium Level 2.2 1.8-2.4 mg/dl
[2016-07-10] VITALS (7 sets, daily range): BP systolic 100–131; BP diastolic 62–80; PULSE 67–73; TEMP 36.4–37; O2SAT 96–100
[2016-07-10 06:12] LABS: BASO % 0.1 %; BASO ABS # 0.01 K/uL (0-0.2); COMPLETE YES; EOS % 4.9 %; HEMATOCRIT 33.7 % (37-47); IG% 0.4 %; LYMPH % 7.7 %; LYMPH ABS # 0.92 K/uL (1.2-3.4); MEAN CELL VOLUME 93.6 fL (80-100); MEAN CORPUSCULAR HEMOGLOBIN 30.3 pg (25-34); MEAN CORPUSCULAR HGB CONC 32.3 g/dl (32-36); MEAN PLATELET VOLUME 12.1 fL (7.4-10.4); MONO % 8.4 %; NEUT % 78.5 %; PLATELET COUNT 112 K/uL (130-400); PLT ESTIMATE DECREASED; WHITE BLOOD COUNT 11.95 K/uL (4.8-10.8)
[2016-07-10] MEDS: ASPIRIN 81 MG ECTAB PO SCH (07:46)
[2016-07-10] MEDS: MULTIVITAMIN TAB PO SCH (07:46)
[2016-07-10] MEDS: POT PHOSPHATE MONOBASIC W/ SOD TAB PO SCH ×4 (07:46→21:15)
[2016-07-10] MEDS: DOCUSATE SODIUM 100 MG CAP PO SCH (07:46)
[2016-07-10] MEDS: POLYETHYLENE (MIRALAX) 17 GM PACK PO SCH (07:46)
[2016-07-10] MEDS: ENOXAPARIN 40 MG/0.4 ML SYR SC SCH (07:47)
[2016-07-10] MEDS: TRIAMCINOLONE ACET 0.1% CR 15 GM TUBE EXT SCH ×2 (07:48→21:15)
[2016-07-10 09:08] LABS: BASO % 0.1 %; BASO ABS # 0.01 K/uL (0-0.2); EOS % 5.8 %; IG% 0.4 %; LYMPH % 7.4 %; LYMPH ABS # 0.92 K/uL (1.2-3.4); MEAN CORPUSCULAR HEMOGLOBIN 30.1 pg (25-34); MEAN PLATELET VOLUME 11.8 fL (7.4-10.4); MONO % 8.1 %; NEUT % 78.2 %; PLATELET COUNT 118 K/uL (130-400); RED BLOOD COUNT 3.55 M/uL (4.2-5.4); WHITE BLOOD COUNT 12.49 K/uL (4.8-10.8)
[2016-07-10 09:12] LABS: COMPLETE YES; MEAN CORPUSCULAR HGB CONC 32.4 g/dl (32-36)
[2016-07-10] MEDS ORDERED: METHYLPREDNISOLONE IV 40 MG in SYRINGE 0 ML IV ONE (09:15)
[2016-07-10 09:28] LABS: BUN/CREATININE RATIO 29.3 (10-20); CALCIUM 8.2 mg/dl (8.5-10.1); CREATININE 0.65 mg/dl (0.60-1.20); POTASSIUM 3.7 mmol/L (3.5-5.1)
[2016-07-10] MEDS: SODIUM CHLORIDE 0.9% 1000ML 1,000 ML IV SCH (12:29)
--- NOTE | 2016-07-10 18:12 | Progress Note ---
Internal Med Progress Note Date of Service: Jul 10, 2016. Provider Documentation: SUBJECTIVE: rash on the face improved but still has significant rash on the back feeling tired appetite ok afebrile no nausea OBJECTIVE: Vital Signs-as noted below Exam: General-alert and awake. Not in distress. Weak and frail ENT-HArd of hearing Neck-no neck masses, supple Lungs-cta b/l no wheezing or crackles Heart-s1 and s2 heard regular rate and rhythm, no murmurs, pacemaker site no drainage Abdomen-soft bowel sounds present non tender no distension Extremities-no edema, no erythema Skin: erythematous rash on the back Neuro-alert and awake moves extremities Lab data as noted below. ASSESSMENT & PLAN: Recurrent syncope 2 to CHB Symptomatic Bradyarrhythmia EEG negative S/P PPM placement-monitor shows pacing rhythm stable f/u with cardiology Generalized Maculopapular rash Most Likely due to Clindamycin which was stopped Hydrocortisone and Benadryl given improved but still has significant rash prednisone given and triamcinolone cream still has rash on the back. one more dose of steroids given today will monitor Hypertension, off ACEI since 2012 due to low BP as per outpx records stable will monitor Mild thrombocytopenia will stop Lovenox will f/u HIT study Dementia. No Delirium 4MGUS as per records DVT prophylaxis. scds DNR as per the patient's daughter/POA, Miss Mimi Farooq. She requests updates from providers at [phone]. Most Likely discharge tomorrow Vital Signs: Date Time Temp Pulse Resp B/P (MAP) Pulse Ox O2 Delivery O2 Flow Rate FiO2 07/10/16 16:00 Room Air 07/10/16 15:27 36.5 67 20 116/75 (89) 97 Room Air 07/10/16 12:00 Room Air 07/10/16 11:39 36.7 67 18 131/80 (97) 96 07/10/16 08:00 Room Air 07/10/16 06:59 36.8 70 19 100/62 (75) 98 Room Air 07/10/16 04:51 37.0 73 18 127/64 (85) 98 Room Air 07/10/16 04:00 Room Air 07/10/16 00:00 Room Air 07/10/16 00:00 36.7 72 18 106/67 (80) 100 Room Air 07/09/16 20:00 Room Air 07/09/16 19:44 36.6 72 20 100/63 (75) 98 Room Air Lab Results: Results Past 24 Hours Test 07/10/16 05:04 07/10/16 08:55 Range/Units White Blood Count 11.95 12.49 4.8-10.8 K/uL Red Blood Count 3.60 3.55 4.2-5.4 M/uL Hemoglobin 10.9 10.7 12.0-16.0 g/dL Hematocrit 33.7 33.0 37-47 % Mean Corpuscular Volume 93.6 93.0 80-100 fL Mean Corpuscular Hemoglobin 30.3 30.1 25-34 pg Mean Corpuscular Hemoglobin Concent 32.3 32.4 32-36 g/dl Platelet Count 112 118 130-400 K/uL Mean Platelet Volume 12.1 11.8 7.4-10.4 fL Neutrophils (%) (Auto) 78.5 78.2 % Lymphocytes (%) (Auto) 7.7 7.4 % Monocytes (%) (Auto) 8.4 8.1 % Eosinophils (%) (Auto) 4.9 5.8 % Basophils (%) (Auto) 0.1 0.1 % Neutrophils # (Auto) 9.38 9.77 1.4-6.5 K/uL Lymphocytes # (Auto) 0.92 0.92 1.2-3.4 K/uL Monocytes # (Auto) 1.00 1.01 0.11-0.59 K/uL Eosinophils # (Auto) 0.59 0.73 0-0.5 K/uL Basophils # (Auto) 0.01 0.01 0-0.2 K/uL RDW Standard Deviation 49.0 48.8 36.4-46.3 fL RDW Coefficient of Variation 14.3 14.3 11.5-14.5 % Immature Granulocyte % (Auto) 0.4 0.4 % Immature Granulocyte # (Auto) 0.05 0.05 0.00-0.02 K/uL Platelet Estimate DECREASED Sodium Level 148 136-145 mmol/L Potassium Level 3.7 3.5-5.1 mmol/L Chloride Level 113 98-107 mmol/L Carbon Dioxide Level 28 21-32 mmol/L Anion Gap 7.0 3-11 mmol/L Blood Urea Nitrogen 19 7-18 mg/dl Creatinine 0.65 0.60-1.20 mg/dl Est Creatinine Clear Calc Drug Dose 56.9 ml/min Estimated GFR () 93.8 Estimated GFR (Non- 81.0 BUN/Creatinine Ratio 29.3 10-20 Random Glucose 108 70-99 mg/dl Calcium Level 8.2 8.5-10.1 mg/dl
[2016-07-11] VITALS (8 sets, daily range): BP systolic 116–128; BP diastolic 68–80; PULSE 66–72; TEMP 36.6–36.8; O2SAT 98–100
[2016-07-11 06:46] LABS: HEMATOCRIT 33.2 % (37-47); MEAN CELL VOLUME 93.3 fL (80-100); MEAN CORPUSCULAR HEMOGLOBIN 30.9 pg (25-34); MEAN CORPUSCULAR HGB CONC 33.1 g/dl (32-36); MEAN PLATELET VOLUME 12.3 fL (7.4-10.4); PLATELET COUNT 117 K/uL (130-400); RED BLOOD COUNT 3.56 M/uL (4.2-5.4); WHITE BLOOD COUNT 10.55 K/uL (4.8-10.8)
[2016-07-11 07:17] LABS: BUN/CREATININE RATIO 37.9 (10-20); CALCIUM 8.3 mg/dl (8.5-10.1); CREATININE 0.48 mg/dl (0.60-1.20); MAGNESIUM 2.2 mg/dl (1.8-2.4)
[2016-07-11 07:38] LABS: BASO % 0.1 %; BASO ABS # 0.01 K/uL (0-0.2); COMPLETE YES; EOS % 5.3 %; IG% 0.4 %; LARGE PLATELETS 1+; LYMPH % 9.9 %; LYMPH ABS # 1.04 K/uL (1.2-3.4); NEUT % 77.3 %; PLT ESTIMATE DECREASED
[2016-07-11] MEDS: DOCUSATE SODIUM 100 MG CAP PO SCH (08:03)
[2016-07-11] MEDS: POT PHOSPHATE MONOBASIC W/ SOD TAB PO SCH (08:03)
[2016-07-11] MEDS: ASPIRIN 81 MG ECTAB PO SCH (08:03)
[2016-07-11] MEDS: POLYETHYLENE (MIRALAX) 17 GM PACK PO SCH (08:03)
[2016-07-11] MEDS: MULTIVITAMIN TAB PO SCH (08:03)
[2016-07-11] MEDS: TRIAMCINOLONE ACET 0.1% CR 15 GM TUBE EXT SCH (08:04)
[2016-07-11] MEDS ORDERED: TRMCR115 EXT (10:13)
[2016-07-11] MEDS ORDERED: METH4PAK PO (10:13)
--- NOTE | 2016-07-11 10:16 | Discharge Instructions ---
Discharge Instructions Date of Service Jul 11, 2016. Admission Reason for Admission: Symptomatic BradycardiaDual Chamber Pacemaker Discharge Discharge Diagnosis / Problem: Symptomatic Bradycardia S/P Dual Chamber Pacemaker, DRUG RASH Discharge Goals Goal(s): Decrease discomfort, Improve function Activity Recommendations Activity Level: Assistance Required Therapies: Physical Therapy, Occupational Therapy . Additional Information Patient informed of condition: Yes Advance Directives: Yes DNR: Yes Level of Care: Skilled Communicable Disease: No Prognosis: Stable Chou Catheter: No Instructions / Follow-Up Instructions / Follow-Up FOLLOWUP WITH FAMILY DOCTOR IN ONE WEEK FOLLOWUP WITH CARDIOLOGY FOR PACE MAKER CHECK IN 1-2 WEEKS. LABS: CBC WITH DIFF AND BMP WITH MG LEVELS IN 5-7 DAYS AND FOLLOW RESULTS WITH FAMILY DOCTOR. Current Hospital Diet Patient's current hospital diet: Regular Diet Discharge Diet Recommended Diet: AHA Diet (Heart Healthy) Pending Studies Studies pending at discharge: no Physician Orders On Transfer Special Precautions: FALL AND ASPIRATION PRECAUTIONS Vital Signs: EVERY 8HRS Medical Emergencies . Who to Call and When: Medical Emergencies: If at any time you feel your situation is an emergency, please call 911 immediately. . Non-Emergent Contact Non-Emergency issues call your: Primary Care Provider . . "Provider Documentation" section prepared by Keith Soria. . Core Measure Problem Core Measures: None
--- NOTE | 2016-07-11 12:35 | Cardiology Follow-Up ---
Subjective General Date of Service: Jul 11, 2016. Chief Complaint: follow up syncope Pt evaluation today including: conversation w/ patient, physical exam History of Present Illness The patient is a 86 year old female seen in follow-up today. She is more alert. The erythematous rash has resolved. She is tentatively scheduled to be transferred back to [facility]. Allergies Coded Allergies: Clindamycin (Verified Allergy, Mild, RASH, 07/08/16) Penicillins (Verified Allergy, Mild, SWELLING, 09/22/14) Adhesives (Verified Allergy, Unknown, 09/22/14) Tetracycline (Verified Allergy, Unknown, RASH, 09/22/14) Social History Smoking Status: Never Smoker Hx Tobacco Use In Past Year?: No Hx Alcohol Use - Type And Amou: No Hx Substance Use - Type And Am: No Problem List Medical Problems: (1) Syncope Status: Acute (2) Third degree AV block Status: Acute Physical Exam Vital Signs Last Vital Signs Documentation Date Time Temp Pulse Resp B/P (MAP) Pulse Ox O2 Delivery O2 Flow Rate FiO2 07/11/16 11:25 36.6 66 18 98 Room Air 07/11/16 11:21 119/79 (92) Physical Exam Constitutional: Level of Distress: chronically ill Lungs: Auscultation: no wheezing, no rales/crackles, no rhonchi Cardiovascular: Heart Auscultation: RRR Extremities: no edema Additional Comments: Left infraclavicular pacemaker site clean dry and intact with Steri-Strips, no hematoma Assessment and Plan Assessment and Plan Impression: 86 year old female Syncope due to intermittent complete AV block for which patient had dual chamber PPM on 07/07. Plan: I have requested follow up with [facility] pacemaker clinic and Dr Browning within 7-10 days. Laboratory Results Last 24 Hours Test 07/10/16 19:09 07/11/16 06:05 Heparin-PF4 Antibody Screen NEG White Blood Count 10.55 K/uL Red Blood Count 3.56 M/uL Hemoglobin 11.0 g/dL Hematocrit 33.2 % Mean Corpuscular Volume 93.3 fL Mean Corpuscular Hemoglobin 30.9 pg Mean Corpuscular Hemoglobin Concent 33.1 g/dl Platelet Count 117 K/uL Mean Platelet Volume 12.3 fL Neutrophils (%) (Auto) 77.3 % Lymphocytes (%) (Auto) 9.9 % Monocytes (%) (Auto) 7.0 % Eosinophils (%) (Auto) 5.3 % Basophils (%) (Auto) 0.1 % Neutrophils # (Auto) 8.16 K/uL Lymphocytes # (Auto) 1.04 K/uL Monocytes # (Auto) 0.74 K/uL Eosinophils # (Auto) 0.56 K/uL Basophils # (Auto) 0.01 K/uL RDW Standard Deviation 48.7 fL RDW Coefficient of Variation 14.2 % Immature Granulocyte % (Auto) 0.4 % Immature Granulocyte # (Auto) 0.04 K/uL Platelet Estimate DECREASED Large Platelets 1+ Sodium Level 144 mmol/L Potassium Level 4.0 mmol/L Chloride Level 110 mmol/L Carbon Dioxide Level 28 mmol/L Anion Gap 6.0 mmol/L Blood Urea Nitrogen 18 mg/dl Creatinine 0.48 mg/dl Est Creatinine Clear Calc Drug Dose 77.1 ml/min Estimated GFR () 103.7 Estimated GFR (Non- 89.4 BUN/Creatinine Ratio 37.9 Random Glucose 81 mg/dl Calcium Level 8.3 mg/dl Magnesium Level 2.2 mg/dl
--- NOTE | 2016-07-11 19:34 | Progress Note ---
Internal Med Progress Note Date of Service: Jul 11, 2016. Provider Documentation: SUBJECTIVE: still has rash on the back but seems getting better afebrile no pain ok for discharge OBJECTIVE: Vital Signs-as noted below Exam: General-alert and awake. Not in distress. Weak and frail ENT-HArd of hearing Neck-no neck masses, supple Lungs-cta b/l no wheezing or crackles Heart-s1 and s2 heard regular rate and rhythm, no murmurs, pacemaker site no drainage Abdomen-soft bowel sounds present non tender no distension Extremities-no edema, no erythema Skin: erythematous rash on the back Neuro-alert and awake moves extremities Lab data as noted below. ASSESSMENT & PLAN: Recurrent syncope 2 to CHB Symptomatic Bradyarrhythmia EEG negative S/P PPM placement-monitor shows pacing rhythm stable f/u with cardiology in 1-2 weeks Generalized Maculopapular rash Most Likely due to Clindamycin which was stopped Hydrocortisone and Benadryl given improved but still has significant rash prednisone given and triamcinolone cream still has rash on the back. discharged on Medrol dose pack and triamcinolone cream f/u with pcp. Hypertension, off ACEI since 2012 due to low BP as per outpx records stable will monitor Mild thrombocytopenia will stop Lovenox HIT study negative platelets 117 today f/u labs with pcp Dementia. No Delirium 4MGUS as per records Discharged to SNF Vital Signs: Date Time Temp Pulse Resp B/P (MAP) Pulse Ox O2 Delivery O2 Flow Rate FiO2 07/11/16 11:25 36.6 66 18 98 Room Air 07/11/16 11:21 36.6 72 20 119/79 (92) 98 Room Air 07/11/16 08:00 98 Room Air 07/11/16 07:06 36.6 66 18 120/80 (93) 99 Room Air 07/11/16 04:09 36.8 67 17 128/77 (94) 100 Room Air 07/11/16 04:00 100 Room Air 07/11/16 00:10 36.7 68 17 116/68 (84) 98 Room Air 07/11/16 00:01 98 Room Air 07/10/16 20:01 36.4 67 18 109/68 (82) 97 Room Air 07/10/16 20:00 97 Room Air Lab Results: Results Past 24 Hours Test 07/11/16 06:05 Range/Units White Blood Count 10.55 4.8-10.8 K/uL Red Blood Count 3.56 4.2-5.4 M/uL Hemoglobin 11.0 12.0-16.0 g/dL Hematocrit 33.2 37-47 % Mean Corpuscular Volume 93.3 80-100 fL Mean Corpuscular Hemoglobin 30.9 25-34 pg Mean Corpuscular Hemoglobin Concent 33.1 32-36 g/dl Platelet Count 117 130-400 K/uL Mean Platelet Volume 12.3 7.4-10.4 fL Neutrophils (%) (Auto) 77.3 % Lymphocytes (%) (Auto) 9.9 % Monocytes (%) (Auto) 7.0 % Eosinophils (%) (Auto) 5.3 % Basophils (%) (Auto) 0.1 % Neutrophils # (Auto) 8.16 1.4-6.5 K/uL Lymphocytes # (Auto) 1.04 1.2-3.4 K/uL Monocytes # (Auto) 0.74 0.11-0.59 K/uL Eosinophils # (Auto) 0.56 0-0.5 K/uL Basophils # (Auto) 0.01 0-0.2 K/uL RDW Standard Deviation 48.7 36.4-46.3 fL RDW Coefficient of Variation 14.2 11.5-14.5 % Immature Granulocyte % (Auto) 0.4 % Immature Granulocyte # (Auto) 0.04 0.00-0.02 K/uL Platelet Estimate DECREASED Large Platelets 1+ Sodium Level 144 136-145 mmol/L Potassium Level 4.0 3.5-5.1 mmol/L Chloride Level 110 98-107 mmol/L Carbon Dioxide Level 28 21-32 mmol/L Anion Gap 6.0 3-11 mmol/L Blood Urea Nitrogen 18 7-18 mg/dl Creatinine 0.48 0.60-1.20 mg/dl Est Creatinine Clear Calc Drug Dose 77.1 ml/min Estimated GFR () 103.7 Estimated GFR (Non- 89.4 BUN/Creatinine Ratio 37.9 10-20 Random Glucose 81 70-99 mg/dl Calcium Level 8.3 8.5-10.1 mg/dl Magnesium Level 2.2 1.8-2.4 mg/dl
--- NOTE | 2016-07-11 19:36 | Discharge Summary ---
Discharge Summary Date of Service Jul 11, 2016. Discharge Summary Admission Date: Jul 06, 2016 at 22:17 Discharge Date: Jul 11, 2016 Discharge Disposition: detention facility Principal Diagnosis: SYMPTOMATIC BRADYCARDIA S/P PACEMAKER RASH- FROM CLINDAMYCIN? Secondary Diagnoses/Problems: for dementia, hypertension, currently not on meds, history of MGUS, slow transit constipation Procedures: CT HEAD: No acute intracranial findings ECHO: Aortic valve sclerosis moderate, without significant aortic valvular stenosis. * The left ventricle is normal in size. * Left ventricular systolic function is normal. * Ejection Fraction = 55-60%. * The right ventricular systolic function is normal. * The left atrium is moderately dilated. * Right atrial size is normal. * There is severe mitral annular calcification. * There is mild mitral stenosis. Consultations: CARDIOLOGY Medication Reconciliation New Medications: Methylprednisolone (Medrol Dosepak) 4 Mg Gabriele 1 PKT PO UD for 6 Days, #1 PKT Triamcinolone Acet (Triamcinolone Acetonide) 45 Appln/15 Gm Cr 1 APPLN EXT BID for 14 Days, 1 Refill APPLY ON THE RASH TWICE DAILY Continued Medications: Acetaminophen (Tylenol) 325 Mg Tab 325 MG PO TID, TAB Aspirin (Aspirin 81) 81 Mg Tab 81 MG PO QAM Cholecalciferol (Vitamin D3) 1,000 Unit Cap 1000 UNIT PO QAM Docusate Sodium (Colace) 100 Mg Cap 100 MG PO QAM for 30 Days, #30 CAP Multiple Vitamin (Daily Vitamin) 1 Tab Tab 1 TAB PO DAILY Oyster Shell ([place] 500) 500 Mg Tab 500 MG PO BID Polyethylene Glycol 3350 (Miralax) 1 Pow Pow 17 GM PO QAM Admission Information HPI (per Admitting provider): History obtained from patient, patient's family, and records. Limited history from the patient was obtained secondary to dementia and hearing impairment. Medical history is significant for dementia, hypertension, currently not on meds, history of MGUS, slow transit constipation as per records. Recent confinement last April 2014 for tibial fracture 2 to fall sp surgery. Yesterday, the patient was with family when she was noted to have a transient unresponsiveness. Patient "blacked out" for a few moments. Px's eyes rolled upwards and some incontinence noted. No extremity jerks or tongue biting witnessed. Her heart rate was found to be 40. Patient later told them that she had a crushing feeling. No cp, no sob. As per family's account, patient earlier had 4 episodes in the morning. PX denies headaches. At the Emergency Room, the patient noted to have complete heart block. Physical Exam (per Admitting): VITAL SIGNS: Blood pressure was noted to be 160/72, later 140/80, pulse rate 47, RR 18, temperature 36.8, sats 92 on room air. GENERAL: Noted to be slightly anxious, no respiratory distress, demented. hard of hearing SKIN: Normal color. HEENT: [place] palpebral conjunctivae. Dry mucosa. NECK: No JVD. Supple. CHEST: Clear to auscultation. HEART: Bradycardic. ABDOMEN: Soft. NT EXTREMITIES: No edema. no tenderness NEUROLOGIC: Dementia. hard of hearing Hospital Course Recurrent syncope 2 to CHB Symptomatic Bradyarrhythmia EEG negative S/P PPM placement-monitor shows pacing rhythm stable f/u with cardiology in 1-2 weeks Generalized Maculopapular rash Most Likely due to Clindamycin which was stopped Hydrocortisone and Benadryl given improved but still has significant rash prednisone given and triamcinolone cream still has rash on the back. discharged on Medrol dose pack and triamcinolone cream f/u with pcp. Hypertension, off ACEI since 2012 due to low BP as per outpx records stable will monitor Mild thrombocytopenia will stop Lovenox HIT study negative platelets 117 today f/u labs with pcp Dementia. No Delirium 4MGUS as per records Discharged to SNF Total time spent on discharge = 40MINUTES This includes examination of the patient, discharge planning, medication reconciliation, and communication with other providers. Discharge Instructions Discharge Instructions Date of Service Jul 11, 2016. Admission Reason for Admission: Symptomatic BradycardiaDual Chamber Pacemaker Discharge Discharge Diagnosis / Problem: Symptomatic Bradycardia S/P Dual Chamber Pacemaker, DRUG RASH Discharge Goals Goal(s): Decrease discomfort, Improve function Activity Recommendations Activity Level: Assistance Required Therapies: Physical Therapy, Occupational Therapy . Additional Information Patient informed of condition: Yes Advance Directives: Yes DNR: Yes Level of Care: Skilled Communicable Disease: No Prognosis: Stable Chou Catheter: No Instructions / Follow-Up Instructions / Follow-Up FOLLOWUP WITH FAMILY DOCTOR IN ONE WEEK FOLLOWUP WITH CARDIOLOGY FOR PACE MAKER CHECK IN 1-2 WEEKS. LABS: CBC WITH DIFF AND BMP WITH MG LEVELS IN 5-7 DAYS AND FOLLOW RESULTS WITH FAMILY DOCTOR. Current Hospital Diet Patient's current hospital diet: Regular Diet Discharge Diet Recommended Diet: AHA Diet (Heart Healthy) Pending Studies Studies pending at discharge: no Physician Orders On Transfer Special Precautions: FALL AND ASPIRATION PRECAUTIONS Vital Signs: EVERY 8HRS Medical Emergencies . Who to Call and When: Medical Emergencies: If at any time you feel your situation is an emergency, please call 911 immediately. . Non-Emergent Contact Non-Emergency issues call your: Primary Care Provider . . "Provider Documentation" section prepared by Keith Soria. . Core Measure Problem Core Measures: None
--- NOTE | 2016-07-13 12:42 | Cardiology Progress Note ---
Cardiology Progress Note Date of Service Jul 13, 2016. Cardiology Progress Note LATE ENTRY, RECEIVED CALL FROM PATEINT'S DAUGHTER REQUESTING PACEMAKER CARE INSTRUCTIONS: ACTIVITY RECOMMENDATIONS: * Do not raise affected arm over head for 2 weeks. SPECIAL CARE INSTRUCTIONS: * If bleeding occurs, apply direct pressure to area for 5 minutes. * Call your doctor if you have severe pain, fever, drainage or bleeding at site. * Keep dressing on and dry for 48 hours then remove. * Keep any scheduled doctor's appointment. * Implant Card - hand held device with website information given. SKIN IRRITATION: * You may experience some redness and/or swelling in the area where radiation was administered. If any skin irritation occurs, please contact your family physician. FOLLOW UP VISIT: Keep any scheduled doctor appointments. EREN VÁZQUEZ, 07/13/16, 12:42 pm.
== END 2016-07-11 13:23 | DRG 244 ==
LOC: EDBD 20:34 → C.EDB 20:37 → C.2T 22:17 → ENRESERV 22:25
PROVIDERS: ADMIT Internal Medicine; ATTEND Internal Medicine
PROC: 0JH606Z Insertion of Pacemaker, Dual Chamber into Chest Subcutaneous Tissue and Fascia, Open Approach (ICD-10-PCS; principal; 2016-07-07 09:30)
PROC: 02H63JZ Insertion of Pacemaker Lead into Right Atrium, Percutaneous Approach (ICD-10-PCS; principal; 2016-07-07 09:30)
PROC: 02HK3JZ Insertion of Pacemaker Lead into Right Ventricle, Percutaneous Approach (ICD-10-PCS; principal; 2016-07-07 09:30)
DX: I44.2 Atrioventricular block, complete (principal); I10 Essential (primary) hypertension; Z79.82 Long term (current) use of aspirin; F03.90 Unspecified dementia, unspecified severity, without behavioral disturbance, psychotic disturbance, mood disturbance, and anxiety; H91.90 Unspecified hearing loss, unspecified ear; L27.0 Generalized skin eruption due to drugs and medicaments taken internally; T36.8X5A Adverse effect of other systemic antibiotics, initial encounter; D69.6 Thrombocytopenia, unspecified; Z88.0 Allergy status to penicillin; Y92.239 Unspecified place in hospital as the place of occurrence of the external cause

== ENCOUNTER → 2016-10-07 | Outpatient (CLI) | payer OTHER ==
[~2016-10-07] MED LIST changes: -ACET-1256 PO; +ACET-1311 PO; -ACET325T96 PO; -CALC500T72 PO; +DOCU-94 PO; -ENOX30IN4 SQ; -MULT-190 PO; -OMEG10007 PO; -OXYC-57 PO; +TRMCR115 EXT
[2016-10-08 11:14] LABS: URINE APPEARANCE CLOUDY (CLEAR); URINE BILIRUBIN NEG (NEG); URINE COLOR DK YELLOW; URINE EPITHELIAL CELL AUTO 0-5 /lpf (0-5); URINE NITRITE NEG (NEG); URINE PH 6.5 (4.5-7.5); URINE SPECIFIC GRAVITY 1.024 (1.000-1.030); UROBILINOGEN NEG (NEG)
[2016-10-08 11:19] LABS: MANUAL MICROSCOPIC REQUIRED? NO; REVIEW REQ? NO
== END | disposition home or self-care (01) ==
LOC: C.LABSPEC 14:00
PROVIDERS: ATTEND Family Medicine
DX: R30.0 Dysuria (principal)